=== PATIENT | female | born 1960 | race Caucasian/White ===

== ENCOUNTER → 2017-02-22 | Outpatient (CLI) | payer MEDICARE, BC | END | disposition home or self-care (01) | LOC: PCVCCLINIC 13:27 | PROVIDERS: ATTEND Internal Medicine | DX: I25.10 Atherosclerotic heart disease of native coronary artery without angina pectoris (principal); I10 Essential (primary) hypertension; E78.5 Hyperlipidemia, unspecified; K31.9 Disease of stomach and duodenum, unspecified; E11.9 Type 2 diabetes mellitus without complications; I25.2 Old myocardial infarction; I44.4 Left anterior fascicular block; J44.9 Chronic obstructive pulmonary disease, unspecified; Z88.1 Allergy status to other antibiotic agents; Z79.4 Long term (current) use of insulin; Z79.84 Long term (current) use of oral hypoglycemic drugs; Z87.891 Personal history of nicotine dependence | CPT/HCPCS: 93005; G0463 ==

== ENCOUNTER → 2018-04-22 | Outpatient (CLI) | payer MEDICARE, BC ==
--- NOTE | 2018-04-22 14:57 | PCVCIMAG ---
APPROVED REPORT Study performed: 04/22/2018 12:05:25 EXAM: Comprehensive 2D, Doppler, and color-flow Echocardiogram Patient Location: Echo lab Status: routine BSA: 2.01 HR: 80 bpmBP: 116/60 mmHg Rhythm: NSR Other Information Study Quality: GoodTechnically Limited Risk Factors: Cardiac Risk Factors: HTN, Hyperlipidemia, Diabetes (insulin) Indications Diabetes CAD Hypertension/HDD Stent, MAIN, Pre op surgery clearance. 2D Dimensions IVSd: 12.79 (7-11mm)LVOT Diam: 20.67 (18-24mm) LVDd: 35.66 mm PWd: 7.44 (7-11mm)Ascending Ao: 31.94 (22-36mm) LVDs: 26.16 (25-40mm) Left Atrium: 36.67 (27-40mm) Aortic Root: 26.65 mm LV Single Plane 4CH: 41.81 % Volumes Left Atrial Volume (Systole) Single Plane 4CH: 33.86 mLSingle Plane 2CH: 41.05 mL LA ESV Index: 19.00 mL/m2 Aortic Valve AoV Peak Nick.: 1.22 m/s AO Peak Gr.: 5.99 mmHgLVOT Max P.06 mmHg LVOT Max V: 0.87 m/s DELMER Vmax: 2.40 cm2 Mitral Valve E/A Ratio: 0.7 MV Decel. Time: 308.30 ms MV E Max Nick.: 0.63 m/s MV A Nick.: 0.89 m/s TDI E/Lateral E': 12.60E/Medial E': 10.50 Medial E' Nick.: 0.06 m/s Lateral E' Nick.: 0.05 m/s Pulmonary Valve PV Peak Gr.: 2.12 mmHg Pulmonary Vein P Vein S: 0.47 m/sP Vein A: 0.35 m/s P Vein D: 0.25 m/sP Vein A Dur.: 93.4 msec P Vein S/D Ratio: 1.88 Left Ventricle The left ventricle is normal size. Regional wall motion is not well visualized. There is normal left ventricular wall thickness. Left ventricular systolic function is mildly decreased. LVEF is 50%. Grade I - abnormal relaxation pattern. Right Ventricle The right ventricle is normal size. The right ventricular systolic function is normal. Atria The left atrium size is normal. The right atrium size is normal. Aortic Valve The aortic valve is normal in structure. No aortic regurgitation is present. There is no aortic valvular stenosis. Mitral Valve The mitral valve is normal in structure. There is no mitral valve regurgitation noted. No evidence of mitral valve stenosis. Tricuspid Valve The tricuspid valve is normal in structure. There is no tricuspid valve regurgitation noted. Pulmonic Valve The pulmonary valve is normal in structure. There is no pulmonic valvular regurgitation. Great Vessels The aortic root is normal in size. IVC is normal in size and collapses >50% with inspiration. Pericardium There is no pericardial effusion. <Conclusion> The left ventricle is normal size. LVEF is 50%. The aortic valve is normal in structure. The mitral valve is normal in structure. The tricuspid valve is normal in structure. The pulmonary valve is normal in structure. There is no pericardial effusion.
== END | disposition home or self-care (01) ==
LOC: PCVCCLINIC 11:51
PROVIDERS: ATTEND Internal Medicine
DX: Z01.810 Encounter for preprocedural cardiovascular examination (principal); I25.10 Atherosclerotic heart disease of native coronary artery without angina pectoris; E78.5 Hyperlipidemia, unspecified; I10 Essential (primary) hypertension; G47.33 Obstructive sleep apnea (adult) (pediatric); E11.9 Type 2 diabetes mellitus without complications; K21.9 Gastro-esophageal reflux disease without esophagitis; E66.01 Morbid (severe) obesity due to excess calories; Z79.899 Other long term (current) drug therapy; Z87.891 Personal history of nicotine dependence
CPT/HCPCS: 80061; 93005; 93306; G0463